=== PATIENT | male | born 1985 | race Hispanic/Latino ===

== ENCOUNTER 2024-05-15 09:02 | Day surgery (SDC) | payer OTHER ==
[2024-05-13 13:49] VITALS: BMI 25.1
[2024-05-15] MEDS ORDERED: Oxymetazoline HCl 0.05% (30 ML BOT) ONE (09:26)
[2024-05-15] MEDS ORDERED: fentaNYL PF 100 MCG/2 ML SYRINGE ONE (09:48)
[2024-05-15] MEDS ORDERED: PROPOFOL 20 ML ONE (09:48)
[2024-05-15] MEDS ORDERED: Rocuronium Bromide 10 MG/ML (10ML VIAL) ONE (09:48)
[2024-05-15] MEDS ORDERED: SUGAMMADEX SODIUM 200 MG/2 ML VIAL ONE ×2 (09:48→10:53)
[2024-05-15] MEDS ORDERED: Dexamethasone 20 MG/5 ML VIAL ONE (09:50)
[2024-05-15] MEDS ORDERED: Ondansetron PF 4 MG/2 ML Vial ONE (09:50)
[2024-05-15] MEDS ORDERED: EPINEPHrine 1 MG/ML VIAL ONE (10:11)
[2024-05-15] MEDS ORDERED: Bacitracin Zinc Ointment 30 gm TUBE ONE (10:12)
[2024-05-15] MEDS ORDERED: Lidocaine 1% (PF) 30 ML VIAL ONE (10:12)
[2024-05-15] MEDS ORDERED: SUCCINYLCHOLINE/SOD CL,ISO/PF 200 MG/10 ML SYRINGE FS ONE (10:46)
[2024-05-15] MEDS ORDERED: hydrALAZINE 20 MG/ML VIAL ONE (12:35)
[2024-05-15] MEDS ORDERED: HYDROcodone/Acetaminophen 5/325 mg Tablet ONE (13:20)
== END 2024-05-15 13:40 | disposition home or self-care (01) ==
LOC: SDC 09:02
PROVIDERS: ATTEND Otolaryngology Plastic Surgery within the Head & Neck
PROC: 09BM0ZZ Excision of Nasal Septum, Open Approach (ICD-10-PCS; principal; 2024-05-15)
PROC: 09TL0ZZ Resection of Nasal Turbinate, Open Approach (ICD-10-PCS; principal; 2024-05-15)
DX: J34.2 Deviated nasal septum (principal); J34.3 Hypertrophy of nasal turbinates; J34.89 Other specified disorders of nose and nasal sinuses; J32.8 Other chronic sinusitis; K13.79 Other lesions of oral mucosa
CPT/HCPCS: J0171; J0360; J1100; J2001; J2405; J2704